=== PATIENT | male | born 1985 | race African-American/Black ===

== ENCOUNTER 2016-08-29 10:54 | Emergency (ER) | payer OTHER ==
[~2016-08-29] VITALS: Ht 1927.9 cm; Wt 66.6 kg
[~2016-08-29 10:54] MED LIST: ALBUTEROL SULF8.5 GM IH; FLEXERIL10 MG PO; KEFLEX500 MG PO; LORTAB 5-325 M1 EACH PO; NAPROSYN500 MG PO; PREDNISONE10 MG PO; PREDNISONE20 MG PO; ULTRAM50 MG PO; VENTOLIN HFA18 GM IH
[2016-08-29] MEDS ORDERED: MOTRIN800 MG PO (12:34)
[2016-08-29] MEDS ORDERED: TRAMADOL HCL50 MG PO (12:34)
[2016-08-29 12:48] VITALS: BP 111/77
== END 2016-08-29 12:56 | disposition home or self-care (01) ==
LOC: EME 10:54
DX: S46.911A Strain of unspecified muscle, fascia and tendon at shoulder and upper arm level, right arm, initial encounter (principal); X58.XXXA Exposure to other specified factors, initial encounter
CPT/HCPCS: 73030; 99281; 99283

== ENCOUNTER 2016-09-03 12:46 | Emergency (ER) | payer OTHER ==
[~2016-09-03] VITALS: Ht 190.5 cm; Wt 68.6 kg
[~2016-09-03 12:46] MED LIST changes: +MOTRIN800 MG PO; +TRAMADOL HCL50 MG PO
[2016-09-03] MEDS ORDERED: TYLENOL WITH C1 EACH PO (14:58)
[2016-09-03] MEDS ORDERED: PERCOCET 5/31 TABLET PO (15:02)
[2016-09-03 15:39] VITALS: BP 129/82
== END 2016-09-03 15:40 | disposition home or self-care (01) ==
LOC: EME 12:46
PROC: 0RSJXZZ Reposition Right Shoulder Joint, External Approach (ICD-10-PCS; principal; 2016-09-03)
DX: S43.014A Anterior dislocation of right humerus, initial encounter (principal); S43.034A Inferior dislocation of right humerus, initial encounter; M24.411 Recurrent dislocation, right shoulder; X58.XXXA Exposure to other specified factors, initial encounter; J45.909 Unspecified asthma, uncomplicated; F17.200 Nicotine dependence, unspecified, uncomplicated
CPT/HCPCS: 73030; 99281; 99285; J1170; J3010

== ENCOUNTER 2017-06-16 23:27 | Emergency (ER) | payer OTHER ==
[~2017-06-16] VITALS: Ht 188 cm; Wt 75.4 kg
[~2017-06-16 23:27] MED LIST changes: +PERCOCET 5/31 TABLET PO; +TYLENOL WITH C1 EACH PO
[2017-06-16 23:56] LABS: HEMATOCRIT 41.9 % (38.0-50.0); MCH 30.4 PG (29.0-34.0); MCHC 34.1 G/DL (30.0-36.0); PLATELET COUNT 209 K/uL (156-360); RBC DIS.WIDTH-CV 13.2 % (11.8-14.6); RBC DIS.WIDTH-SD 43.4 % (39-53); RED BLOOD COUNT 4.71 M/uL (4.00-5.50); WHITE BLOOD COUNT 11.9 K/uL (4.1-10.2)
[2017-06-17 00:07] LABS: CHLORIDE 104 mEq/L (99-109); POTASSIUM 3.6 mEq/L (3.7-5.4); SODIUM 140 mEq/L (136-147)
[2017-06-17 00:10] LABS: GLUCOSE 127 mg/dL (70-99)
[2017-06-17 00:11] LABS: ANION GAP 13 MEQ/L (2-14)
[2017-06-17 00:12] LABS: TOTAL BILIRUBIN 0.5 mg/dL (0.0-1.0)
[2017-06-17 00:13] LABS: ALKALINE PHOSPHATASE 53 IU/L (3-129); SERUM ETHYL ALCOHOL < 10 mg/dL
[2017-06-17 00:14] LABS: GFR ESTIMATE (CALCULATED) > 59 mL/min/
[2017-06-17 00:15] LABS: UREA NITROGEN (BUN) 10 mg/dL (9-23)
[2017-06-17 00:40] VITALS: BP 118/59
== END 2017-06-17 00:41 | disposition left against medical advice (07) ==
LOC: TRA 23:27 → EME 23:27 → TRA 06-17 00:41
PROVIDERS: Emergency Medicine
DX: M25.561 Pain in right knee (principal); M54.5 Low back pain; V48.0XXA Car driver injured in noncollision transport accident in nontraffic accident, initial encounter; F41.9 Anxiety disorder, unspecified; J45.909 Unspecified asthma, uncomplicated; B19.20 Unspecified viral hepatitis C without hepatic coma; F17.200 Nicotine dependence, unspecified, uncomplicated
CPT/HCPCS: 80053; 85027; G0480